=== PATIENT | male | born 1960 | race Hispanic/Latino ===

== ENCOUNTER 2023-09-28 10:18 | Emergency (ER) | payer OTHER ==
[~2023-09-28] VITALS: Ht 162.6 cm; Wt 119.7 kg
[~2023-09-28 10:18] MED LIST: AMLO-258 PO; CIPR500T10 PO; CYCL-309 PO; LISI1TAB51 PO; LOVA20TA3 PO; METR-172 PO; NAPR-1023 PO; PRAV10TA39 PO
[2023-09-28 10:51] VITALS: BP 190/76; PULSE 84; RESP 20
[2023-09-28 11:17] LABS: RAPID GROUP A STREP negative (NEGATIVE)
[2023-09-28 11:22] LABS: SARS-CoV-2, RNA, NAAT NEGATIVE SARS CoV-2 (NEGATIVE)
[2023-09-28 11:30] LABS: INFLUENZA TYPE A Negative For Type A (NEGATIVE); INFLUENZA TYPE B Negative For Type B (NEGATIVE)
[2023-09-28 11:42] LABS: APPEARANCE,URINE CLEAR (CLEAR); BILIRUBIN,URINE NEGATIVE (NEGATIVE); COLOR,URINE YELLOW (YELLOW); GLUCOSE, URINE (UA) 30 mg/dL (NEGATIVE); KETONES,URINE NEGATIVE (NEGATIVE); LEUKOCYTE ESTERASE ,URINE NEGATIVE Leu/uL (NEGATIVE); NITRATE,URINE NEGATIVE (NEGATIVE); OCCULT BLOOD,URINE SMALL (NEGATIVE); PH,URINE 6.5 (5.0-8.0); PROTEIN,URINE 30 mg/dL (NEGATIVE)
[2023-09-28 11:48] LABS: ADD UA MICROSCOPIC YES
[2023-09-28 11:49] LABS: BACTERIA,URINE RARE /HPF (None Seen); MUCUS,URINE RARE LPF (None Seen); SQUAMOUS EPITHELIAL CELL,UR FEW /HPF (0-2); WBC,URINE 0-1 /HPF (0-1)
[2023-09-28 13:10] LABS: BASOPHILS # (AUTO) 0.05 K/uL (0.00-0.20); BASOPHILS % (AUTO) 0.6 % (0.0-5.0); EOSINOPHILS # (AUTO) 0.26 K/uL (0.00-0.70); EOSINOPHILS % (AUTO) 3.1 % (0.0-8.0); HEMATOCRIT 38.5 % (42-54); IMMATURE GRANULOCYTE ABSOLUTE 0.03 K/uL (0-1); LYMPHOCYTES # (AUTO) 2.1 K/uL (1.0-4.8); LYMPHOCYTES % (AUTO) 25.3 % (21.0-51.0); MEAN CORPUSCULAR HEMOGLOBIN 35.6 pg (27.0-33.0); MEAN CORPUSCULAR HGB CONC 36.9 g/dL (32.0-36.0); MEAN CORPUSCULAR VOLUME 96.5 fL (79-99); MONOCYTES # (AUTO) 0.9 K/uL (0.1-1.0); NEUTROPHILS # (AUTO) 5.1 K/uL (1.8-7.7); NEUTROPHILS % (AUTO) 60.6 % (40.0-77.0); PLATELET COUNT (AUTO) 108 K/uL (130-400); RED BLOOD CELL COUNT(AUTO) 3.99 MIL/uL (4.50-6.20); RED CELL DISTRIBUTION WIDTH 13.9 % (11.0-15.5); WHITE BLOOD COUNT (AUTO) 8.5 K/uL (4.8-10.8)
[2023-09-28 13:23] LABS: CREATININE 1.2 mg/dL (0.5-1.3); POTASSIUM 3.8 mmol/L (3.5-5.1)
[2023-09-28 13:27] LABS: ALBUMIN 2.5 g/dL (3.5-5.0); BILIRUBIN,TOTAL 2.3 mg/dL (0.2-1.0); TOTAL PROTEIN, SERUM 7.6 g/dL (6.0-8.3)
[2023-09-28] MEDS ORDERED: LACT10SO9 PO (13:37)
[2023-09-28] MEDS ORDERED: PRED10TA3 PO (13:37)
[2023-09-28] MEDS: DEXAMETHASONE SOD PHOSPHATE 4 MG/ML 1ML VIAL IV ONE (13:42)
[2023-09-28] MEDS: LACTULOSE 20 GM/30 ML UDCUP PO ONE (13:42)
[2023-09-28] MEDS: 0.9%NACL 1000ML 1,000 ML IV ONE (13:43)
== END 2023-09-28 15:53 | disposition home or self-care (01) ==
LOC: EDH 10:18
DX: R74.8 Abnormal levels of other serum enzymes (principal); J02.9 Acute pharyngitis, unspecified; I10 Essential (primary) hypertension; Z20.822 Contact with and (suspected) exposure to COVID-19; Z79.899 Other long term (current) drug therapy
CPT/HCPCS: 99285; 96374; 76705; 87635; 96361; 84484; 80053; 82140; 83690; 85025; 87880; 87804 ×2; 83605; 81001; 36415; 93005; J1100; J7030